=== PATIENT | female | born 1965 | race Caucasian/White ===

== ENCOUNTER → 2017-03-06 | Outpatient (CLI) | payer BC ==
--- NOTE | 2017-03-06 08:52 | MR ---
EXAMINATION TYPE: MR brain and iac wo/w con DATE OF EXAM: 03/06/2017 8:00 AM COMPARISON: NONE HISTORY: dizziness, rt side hearing loss TECHNIQUE: Multiplanar, multiecho imaging of the brain was obtained with and without intravenous adm inistration of 5.5 mL intravenous Gadavist. FINDINGS: Midline structures are unremarkable. There is a normal craniocervical junction. Echoplanar diffusion imaging is normal. There are normal vascular flow voids. High-resolution T2-weighted imaging through the posterior fossa exquisitely demonstrates the seventh 8th nerve complex without evidence of a CP angle mass lesion or intracanalicular acoustic schwannoma. There is a solitary, 2.8 mm high intensity FLAIR lesion in the subcortical white matter of the anteri or parietal lobe on the left. This is nonspecific and of questionable etiology. There is no mass effe ct, midline shift or intracranial blood. Following intravenous administration of gadolinium, I do not see evidence of abnormal enhancement. Sp ecifically I do not see evidence of intracanalicular acoustic schwannoma. IMPRESSION: 1. NO ACUTE INTRACRANIAL ABNORMALITY. 2. NO EVIDENCE OF A CP ANGLE MASS OR INTRACANALICULAR ACOUSTIC SCHWANNOMA. 3. SOLITARY HIGH SIGNAL FLAIR LESION IN THE ANTERIOR PARIETAL LOBE ON THE LEFT of questionable etiolo gy and significance.
== END | disposition home or self-care (01) ==
LOC: RADMRIMAIN 07:02
PROVIDERS: ATTEND Otolaryngology
DX: H91.91 Unspecified hearing loss, right ear (principal); H93.3X9 Disorders of unspecified acoustic nerve; H93.19 Tinnitus, unspecified ear
CPT/HCPCS: 70553; A9581

== ENCOUNTER 2018-12-28 10:19 | Day surgery (SDC) | payer BC ==
[2018-12-27 09:16] VITALS: BMI 22.9
[~2018-12-28 10:19] MED LIST: LACTATED RINGERS 1,000 ML IV SCH; LIDOCAINE 1% 20 ML VIAL (10MG/ML) FOR IV START INTRADERMA PRN
[2018-12-28 11:19] VITALS: TEMP 98.1
[2018-12-28] MEDS ORDERED: LIDOCAINE 1% INJ 10MG/ML (20 ML MDV) ONE (11:55)
[2018-12-28] MEDS ORDERED: GLYCOPYRROLATE 0.2 MG/ML 2 ML VIAL ONE (11:55)
[2018-12-28] MEDS ORDERED: PROPOFOL 10 MG/ML 20 ML VIAL IV ONE (11:55)
--- NOTE | 2018-12-28 12:07 | P.PCN ---
Date of Procedure: 12/28/18 Procedure(s) Performed: BRIEF HISTORY: Patient is a 53-year-old, pleasant, white female, scheduled for an upper endoscopy as a part of evaluation of intermittent episodes of epigastric pain for the last 2-3 years duration. These episodes of happens once a week and last for about 10 minutes and resolved. In between episodes she has some heartburn but denies any dysphagia or odynophagia. She takes Prilosec as needed . PROCEDURE PERFORMED: Esophagogastroduodenoscopy with biopsy. PREOPERATIVE DIAGNOSIS: Epigastric pain. IV sedation per anesthesia. PROCEDURE: After informed consent was obtained, the patient was brought into the endoscopy unit. IV sedation was administered by Anesthesia under continuous monitoring. Initially the Olympus GIF-140 video endoscope was inserted into the mouth. Esophagus intubated without any difficulty. It was gradually advanced into the stomach and duodenum and carefully examined. The bulb and the second part of the duodenum appeared normal. Biopsies were done from the duodenum to rule out celiac disease The scope at this time was withdrawn to the stomach, adequately insufflated with air, and upon careful examination, mucosa of the antrum, had mild gastritis and biopsies were done from this area. The body, cardia and the fundus appeared normal. The scope was then withdrawn into the esophagus. The GE junction was located at 39 cm from the incisors. There were superficial erosions at the GE junction consistent with LA grade a reflux esophagitis. Rest of esophagus appeared normal and the patient tolerated the procedure well. IMPRESSION: 1. Mild antral gastritis. 2. LA grade A reflux esophagitis. RECOMMENDATIONS: The findings of this examination were discussed with the patient as well as her family. She was advised to continue with omeprazole 20 mg daily and follow antrum reflux measures.
[2018-12-28 12:47] VITALS: BP 101/65; PULSE 86; RESP 16
== END 2018-12-28 13:20 | disposition home or self-care (01) ==
LOC: ORWHC2ENDO 10:19
PROVIDERS: ATTEND Internal Medicine Gastroenterology
DX: K21.0 Gastro-esophageal reflux disease with esophagitis (principal); K29.70 Gastritis, unspecified, without bleeding; K31.9 Disease of stomach and duodenum, unspecified; J45.909 Unspecified asthma, uncomplicated; Z79.899 Other long term (current) drug therapy; Z98.890 Other specified postprocedural states
CPT/HCPCS: 81025; 88305; 43239; J2001; J2704

== ENCOUNTER 2020-11-23 16:21 | Emergency (ER) | payer BC ==
[2020-11-23 16:47] VITALS: BP 127/74; PULSE 62; RESP 20; TEMP 99.1
[2020-11-23] MEDS ORDERED: FLUORESCEIN STRIPS 1 MG STRIP LEFT EYE STA (17:11)
[2020-11-23] MEDS ORDERED: PROPARACAINE 0.5% OPHTH DROPS 15 ML BTL LEFT EYE STA (17:11)
[2020-11-23] MEDS ORDERED: OFLOXACIN 0.3% OPHTH DROPS 5 ML BOTTLE RIGHT EYE STA (18:50)
--- NOTE | 2020-11-23 18:52 | ED ---
General Adult HPI - General Chief complaint: ENT Stated complaint: eye pain Time Seen by Provider: 11/23/20 17:11 Source: patient Mode of arrival: ambulatory Limitations: no limitations - History of Present Illness Initial comments: 55-year-old female presents to the emergency room for right eye pain. Patient states that yesterday states she started to get some right eye irritation. States it hurts to open her eye and her eye is watering. Patient states last time this happened she had an infection. Patient does wear contacts. Patient denies any visual changes. Patient denies remembering injuring her eye. Patient is up-to-date on tetanus.Patient has no other complaints at this time including shortness of breath, chest pain, abdominal pain, nausea or vomiting, headache, or visual changes. - Related Data Home Medications Medication Instructions Recorded Confirmed Albuterol Inhaler (Mhu) [Ventolin 2 puff INHALATION QID 01/22/15 12/28/18 Inhaler] Cetirizine HCl 10 mg PO DAILY 01/22/15 12/28/18 Fluticasone Propionate [Flovent 1 applic INHALATION BID PRN 01/22/15 12/28/18 Hfa 110mcg] Omeprazole [PriLOSEC] 20 mg PO DAILY 01/22/15 12/28/18 Albuterol Inhaler (Mhu) [Ventolin 1 - 2 puff INHALATION RT-Q6H PRN 12/27/18 12/28/18 Hfa Inhaler] Hyoscyamine Sulfate [Levsin] 0.125 mg PO DIRECTED PRN 12/27/18 12/28/18 Montelukast [Singulair] 10 mg PO DAILY 12/27/18 12/28/18 Previous Rx's Medication Instructions Recorded Ofloxacin 0.3% Ophth Soln [Ocuflox 2 drops RIGHT EYE QID 7 Days #10 ml 11/23/20 Ophth Soln] Allergies Allergy/AdvReac Type Severity Reaction Status Date / Time No Known Allergies Allergy Verified 11/23/20 16:47 Review of Systems ROS Statement: Those systems with pertinent positive or pertinent negative responses have been documented in the HPI. ROS Other: All systems not noted in ROS Statement are negative. Past Medical History Past Medical History: Asthma, COPD, GERD/Reflux Additional Past Medical History / Comment(s): ENVIRONMENTAL ALLERGIES, STOMACH PAIN. History of Any Multi-Drug Resistant Organisms: None Reported Past Surgical History: Breast Surgery, Orthopedic Surgery Additional Past Surgical History / Comment(s): RT FOOT SX, BREAST IMPLANTS Past Anesthesia/Blood Transfusion Reactions: No Reported Reaction Past Psychological History: No Psychological Hx Reported Smoking Status: Never smoker Past Alcohol Use History: Occasional Past Drug Use History: None Reported - Past Family History Brother(s) Family Medical History: Cancer Additional Family Medical History / Comment(s): ? BLOOD CANCER & PART OF CHIN REMOVED. General Exam Limitations: no limitations General appearance: alert, in no apparent distress Head exam: Present: atraumatic Eye exam: Present: normal appearance, PERRL, EOMI, conjunctival injection (Right sided conjunctival injection). Absent: scleral icterus Expanded Eyelids: Normal Inspection: Bilateral Pupils: Regular, Round: Bilateral Sclera/Conjunctival: Injection: Right ENT exam: Present: normal exam, mucous membranes moist Neck exam: Present: normal inspection, full ROM. Absent: tenderness Respiratory exam: Present: normal lung sounds bilaterally. Absent: respiratory distress, wheezes Cardiovascular Exam: Present: regular rate, normal rhythm, normal heart sounds Course Vital Signs 11/23/20 16:44 Temperature 99.1 F Pulse Rate 62 Respiratory 20 Rate Blood Pressure 127/74 O2 Sat by Pulse 95 Oximetry Medical Decision Making - Medical Decision Making Vitals are stable. Patient is well-appearing. She does have some conjunctival injection. Proparacaine did alleviate her pain. Fluorescein stain was used with Wood's lamp. She does have small abrasion to the cornea. Visual acuity with left contact and without right contact 20/50 both eyes, 20/100 right eye without contact, 20/40 left eye with contact. Tetanus up-to-date. I did want to speak with ophthalmology before starting patient on antibiotics and secure follow-up however she is requesting discharge. Therefore we will start her on ofloxacin every 6 hours and will await ophthalmology call and we'll call her with any updates. Dr Gerber agreeable with treatment plan, will see her Wednesday morning. Disposition Clinical Impression: Corneal abrasion Disposition: HOME SELF-CARE Condition: Good Additional Instructions: Do not wear contacts for at least a week. Use drops as directed. Follow-up with ophthalmology. Return to the emergency room for any worsening symptoms. Prescriptions: Ofloxacin 0.3% Ophth Soln [Ocuflox Ophth Soln] 2 drops RIGHT EYE QID 7 Days #10 ml Is patient prescribed a controlled substance at d/c from ED?: No Referrals: Tripp Storm MD [Primary Care Provider] - 1-2 days Parrish Gerber MD [STAFF PHYSICIAN] - 1-2 days Time of Disposition: 18:51
== END 2020-11-23 19:16 | disposition home or self-care (01) ==
LOC: EC 16:21
DX: S05.01XA Injury of conjunctiva and corneal abrasion without foreign body, right eye, initial encounter (principal); X58.XXXA Exposure to other specified factors, initial encounter
CPT/HCPCS: 99283

== ENCOUNTER → 2024-06-21 | Outpatient (CLI) | payer BC ==
--- NOTE | 2024-06-21 14:07 | CT ---
EXAMINATION TYPE: CT chest w con DATE OF EXAM: 06/21/2024 11:40 AM COMPARISON: Radiograph 05/04/2024 CLINICAL INDICATION: Female, 58 years old with history of J44.89 COPD; PHH, BREATHING ISSUES, shortne ss of breath TECHNIQUE: Multiple axial images were obtained through the chest. Sagittal and coronal reformats were created for review. Contrast used:100 mL of Isovue [address] DLP: 395 mGycm, Automated exposure control for dose reduction was used. FINDINGS: Bilateral breast prostheses. Heart normal size without pericardial effusion. Aorta normal caliber with mild atherosclerotic arch calcifications. Conventional arch. Branching naa batool. No thoracic lymphadenopathy by CT size criteria. Dwng-up-zumacwab diffuse bronchial wall thickening. Numerous scattered bilateral pulmonary nodules me asuring up to 5 mm. Some of the areas of nodularity have a tree-in-bud appearance which is in the rig ht middle lobe, lateral right eighth, and posterior right upper lobe. Biapical pleural parenchymal scarring. Mild emphysematous change. Visualized upper abdomen shows mild thickening within the stomach. Underlying parapelvic cysts left k idney measuring up to 2.0 cm. Bones: No osseous destructive process. IMPRESSION: 1. COPD with mild emphysema. 2. Numerous scattered bilateral pulmonary nodules measuring up to 5 mm. Some of these areas of nodula rity have a tree-in-bud appearance raising possibility of an infectious/inflammatory etiology such as infectious bronchiolitis or atypical infection. Recommend three-month follow-up CT to reassess. [facility], , 06/21/2024 2:05 PM
[2024-06-21 21:18] LABS: Alternaria alternata IgE <0.10 kU/L; Aspergillus fumagatus IgE <0.10 kU/L; Birch IgE <0.10 kU/L; Cat Epith & Dander IgE 0.12 kU/L; Cladosporian herbarum IgE <0.10 kU/L; Cockroach IgE <0.10 kU/L; Dog Dander IgE <0.10 kU/L; Elm IgE <0.10 kU/L; Maple (Box Elder) IgE <0.10 kU/L; Oak IgE <0.10 kU/L; Ragweed,Common IgE <0.10 kU/L; Red Top (Bentgrass) IgE <0.10 kU/L
== END | disposition home or self-care (01) ==
LOC: RADCTMAIN 11:06
PROVIDERS: ATTEND Internal Medicine Critical Care Medicine
DX: J43.9 Emphysema, unspecified (principal); J44.89 Other specified chronic obstructive pulmonary disease; R91.8 Other nonspecific abnormal finding of lung field
CPT/HCPCS: 85008; 86003; 82785; 71260; 36415; Q9967